=== PATIENT | female | born 1995 | race Caucasian/White ===

== ENCOUNTER 2025-06-17 05:00 | Emergency (ER) | payer OTHER ==
[2025-06-17] MEDS: Ondansetron 4 MG Tab.DIS PO ONE (05:50)
[2025-06-17] MEDS: Ondansetron 4 MG/2 ML SDV IM ONE (05:56)
== END 2025-06-17 07:15 | disposition home or self-care (01) ==
LOC: VM.ED 05:00
DX: J01.00 Acute maxillary sinusitis, unspecified (principal); J06.9 Acute upper respiratory infection, unspecified; Z79.899 Other long term (current) drug therapy
CPT/HCPCS: 96372; 99283; A9270; J2405